=== PATIENT | male | born 1985 | race Hispanic/Latino ===

== ENCOUNTER 2018-02-28 13:08 | Emergency (ER) | payer OTHER ==
--- NOTE | 2018-02-28 14:03 | ED PDOC ---
HPI: Abdomen Time Seen by Provider: 02/28/18 13:31 Chief Complaint (Nursing): Abdominal Pain Chief Complaint (Provider): Abdominal pain History Per: Patient Additional Complaint(s): Pt is a 33 yo male, no PMH, presents to ED with complaints of a 4 min episode of right upper quadrant pain that developed after eating lunch this afternoon. Pt notes pain self resolved , denied any associated nausea, vomiting, diarrhea. no fever or chills. pt at this time is pain free. Past Medical History Reviewed: Nursing Documentation, Vital Signs Vital Signs: Last Vital Signs Temp 98.4 F 02/28/18 13:11 Pulse 70 02/28/18 13:11 Resp 16 02/28/18 13:11 BP 129/83 02/28/18 13:11 Pulse Ox 98 02/28/18 14:03 - Medical History PMH: Asthma - Surgical History Surgical History: No Surg Hx - Family History Family History: States: No Known Family Hx - Living Arrangements Living Arrangements: With Family - Social History Current smoker - smoking cessation education provided: No Alcohol: Social Drugs: Denies - Home Medications Home Medications: Ambulatory Orders Medication Instructions Recorded No Known Home Med 02/28/18 - Allergies Allergies/Adverse Reactions: Allergies Allergy/AdvReac Type Severity Reaction Status Date / Time No Known Allergies Allergy Verified 02/28/18 13:31 Review of Systems ROS Statement: Except As Marked, All Systems Reviewed And Found Negative Gastrointestinal: Positive for: Abdominal Pain Physical Exam - Reviewed Nursing Documentation Reviewed: Yes Vital Signs Reviewed: Yes - Physical Exam Appears: Positive for: Well, Non-toxic, No Acute Distress Head Exam: Positive for: ATRAUMATIC, NORMAL INSPECTION, NORMOCEPHALIC Skin: Positive for: Normal Color, Warm, DRY Eye Exam: Positive for: EOMI, Normal appearance, PERRL ENT: Positive for: Normal ENT Inspection Neck: Positive for: Normal, Painless ROM Cardiovascular/Chest: Positive for: Regular Rate, Rhythm Respiratory: Positive for: CNT, Normal Breath Sounds Gastrointestinal/Abdominal: Positive for: Normal Exam, Soft, Other ((-) hall' s sign). Negative for: Tenderness, Distended, Guarding Back: Positive for: Normal Inspection Extremity: Positive for: Normal ROM Neurologic/Psych: Positive for: Alert, Oriented - Laboratory Results Result Diagrams: 02/28/18 14:08 02/28/18 14:08 - ECG O2 Sat by Pulse Oximetry: 98 Medical Decision Making Medical Decision Making: Abdomen soft, non tender and non distended. Pt pain free at this time. Imaging studies not clinically indicated at this time. labs drawn and results reviewed with pt who demonstrated full understanding. Pt doing well on re-eval, offers no complaints. advised to follow up with PMD for possible GI referral if pain returns Signs and symptoms of cholecystitis discussed, as well as other sources of RUQ pain Disposition - Clinical Impression Clinical Impression: Abdominal discomfort - Patient ED Disposition Is Patient to be Admitted: No - Disposition Disposition: Routine/Home Disposition Time: 15:34 Condition: STABLE Instructions: Acute Abdomen (Belly Pain), Adult (DC) Forms: [employer] (I[place]ic)
[2018-02-28 14:20] LABS: BASO % 0.5 % (0.0-2.0); EOS # 0.3 K/uL (0.0-0.7); EOS % 6.3 % (0.0-4.0); HEMOGLOBIN 15.4 g/dL (12.0-18.0); LYMPH # 1.3 K/uL (1.0-4.3); LYMPH % 25.7 % (20.0-40.0); MEAN CELL VOLUME 92.6 fl (80.0-94.0); MEAN CORPUSCULAR HEMOGLOBIN 31.8 pg (27.0-31.0); MEAN CORPUSCULAR HGB CONC 34.3 g/dL (33.0-37.0); MEAN PLATELET VOLUME 7.9 fl (7.2-11.7); MONO # 0.5 K/uL (0.0-0.8); MONO % 10.7 % (0.0-10.0); NEUT # 2.8 K/uL (1.8-7.0); NEUT % 56.8 % (50.0-75.0); RBC 4.84 Mil/uL (4.40-5.90); RED CELL DISTRIBUTION WIDTH 13.1 % (11.5-14.5); WHITE BLOOD COUNT 4.9 K/uL (4.8-10.8)
[2018-02-28 14:28] LABS: ALB/GLOB RATIO 1.4 (1.0-2.1); ALBUMIN 4.6 g/dL (3.5-5.0); CALCIUM 9.4 mg/dL (8.4-10.2); GFR NON-AFRICAN AMERICAN > 60
[2018-02-28 14:29] LABS: ALT/SGPT 56 U/L (21-72); AST/SGOT 41 U/L (17-59); BLOOD UREA NITROGEN 15 mg/dl (9-20)
[2018-02-28 15:36] VITALS: BP 117/69; PULSE 74; RESP 19; TEMP 98.1; O2SAT 99
[2018-02-28 15:49] LABS: AMYLASE 77 U/L (30-110); LIPASE 44 U/L (23-300)
== END 2018-02-28 15:42 | disposition home or self-care (01) ==
LOC: H.ER 13:08
DX: R10.11 Right upper quadrant pain (principal); J45.909 Unspecified asthma, uncomplicated